=== PATIENT | male | born 1985 | race Caucasian/White ===

== ENCOUNTER → 2020-03-03 14:10 | Outpatient (CLI) | payer BC, SELFPAY ==
--- NOTE | ~2020-03-03 | US_ITS ---
US axilla RT 03/03/2020 14:31 Indication: Palpable right axillary nodules with swelling Procedure: High-resolution Limited right axillary ultrasound Comparison: No prior studies for comparison. Findings: There are 2 small superficial lymph nodes in the area of palpable concern, largest measurin g 8 mm maximum dimension. No suspicious masses are identified to suggest malignancy or infection. Impression: 1: Benign-appearing right axillary lymph nodes measuring up to 8 mm, corresponds to the area of palpa ble concern. BI-RADS CATEGORY 2 - BENIGN FINDINGS Reviewed, dictated and finalized at location A. Impression: 1: Benign-appearing right axillary lymph nodes measuring up to 8 mm, correspond s to the area of palpable concern. BI-RADS CATEGORY 2 - BENIGN FINDINGS
== END ==
PROVIDERS: PCP Family Medicine; Visit Provider Physician Assistant
DX: R22.1 Localized swelling, mass and lump, neck (principal); R59.1 Generalized enlarged lymph nodes
CPT/HCPCS: 76882

== ENCOUNTER → 2020-09-01 07:19 | Outpatient (CLI) | payer BC, SELFPAY ==
--- NOTE | ~2020-09-01 | US_ITS ---
EXAMINATION: US abdomen limited DATE: 09/01/2020 08:11 INDICATION: Other specified abnormal findings of blood chemistry. Abnormal liver function tests. TECHNIQUE: Multiple grayscale and Doppler ultrasound images of the abdomen were obtained. COMPARISON: None FINDINGS: Abdominal aorta is normal in caliber. Inferior vena cava is normal. The visualized portions of the head, body, and tail of the pancreas are normal. The liver is normal without focal lesion. No liver surface nodularity. There is normal flow in main portal vein. The gallbladder is normal in siz e. No gallstones or gallbladder wall thickening. There was no sonographic Smith sign. The common kayleigh t is normal and measures 2 mm. Right kidney is normal. IMPRESSION: 1. Normal right upper quadrant ultrasound. Reviewed, dictated and finalized at location A. DDLE BUG
== END ==
PROVIDERS: PCP Family Medicine; Visit Provider Family Medicine
DX: R79.89 Other specified abnormal findings of blood chemistry (principal)
CPT/HCPCS: 76705